=== PATIENT | male | born 1955 | race Caucasian/White ===

== ENCOUNTER 2020-01-24 08:38 | Outpatient (CLI) | payer OTHER, SELFPAY ==
[2020-01-24 08:56] LABS: Basophils Absolute Auto 0.1 K/mm3 (0.0-0.1); Basophils Percent Auto 0.8 % (0.2-1.2); Eosinophils Absolute Auto 0.2 K/mm3 (0-0.3); Eosinophils Percent Auto 2.8 % (0-4.4); Hematocrit 46.5 % (42.0-52.0); Hemoglobin 15.6 g/dL (14.0-18.0); Immature Granulocyte Absolute 0.01 K/mm3 (0.00-0.031); Immature Granulocyte Percent A 0.2 % (0-0.5); Lymphocytes Percent Auto 20.1 % (18.3-44.2); Mean Corpuscular HGB Conc 33.5 g/dl (32-36); Mean Corpuscular Hemoglobin 29.9 pg (26-34); Mean Corpuscular Volume 89.1 fl (80-100); Mean Platelet Volume 10.2 fl (7.4-10.4); Monocytes Absolute Auto 0.6 K/mm3 (0.1-0.6); Monocytes Percent Auto 9.2 % (2.6-8.5); Neutrophils Percent Auto 66.9 % (45.5-73.1); Platelet Count Result 182 k/mm3 (150-375); Red Blood Count 5.22 M/mm3 (4.6-6.20); Red Cell Distribution Width 11.9 % (11.5-14.5)
[2020-01-24 09:08] LABS: Alanine Aminotransferase 36 U/L (4-50); Albumin Level 4.3 g/dL (3.5-5.1); Alkaline Phosphatase 75 U/L (38-126); Aspartate Amino Transferase 40 U/L (17-59); Bilirubin,Total 0.6 mg/dL (0.2-1.3); Blood Urea Nitrogen 14 mg/dL (9-20); Calcium 8.7 mg/dL (8.4-10.2); Carbon Dioxide 30 mmol/L (22-30); Chloride 102 mmol/L (98-107); Cholesterol 193 mg/dL (0-200); Estimated Glomerular Filt Rate > 60; Glucose 108 mg/dL (75-110); HDL Direct 41 mg/dL; Potassium 4.2 mmol/L (3.4-5.0); Sodium 138 mmol/L (137-145); Triglycerides 65 mg/dL (<150)
[2020-01-24 09:12] LABS: Rheumatoid Factor < 8.6 IU/ML (<12)
[2020-01-24 09:18] LABS: Erythrocyte Sedimentation Rate 9 mm/hr (0-20)
[2020-01-24 09:19] LABS: LDL Cholesterol Direct 133 mg/dL
[2020-01-24 10:22] LABS: Vitamin D 25 Hydroxy 41.2 ng/mL
== END 2020-01-24 08:39 | disposition home or self-care (01) ==
PROVIDERS: PCP Family Medicine; Visit Provider Nurse Practitioner
DX: Z00.00 Encounter for general adult medical examination without abnormal findings (principal); M25.40 Effusion, unspecified joint; E55.9 Vitamin D deficiency, unspecified
CPT/HCPCS: 36415; 80053; 80061; 82306; 84443; 85025; 85652; 86038; 86430

== ENCOUNTER 2023-05-24 01:24 | Day surgery (SDC) | payer MEDICARE, OTHER, SELFPAY ==
[2023-05-15 14:08] VITALS: BMI 30.8
--- NOTE | 2023-05-23 15:27 | PM.HPGS ---
History of Present Illness History of Present Illness Consent: Risks, benefits, and alternatives have been discussed and questions answered. Patient agrees to proceed with procedure. Chief complaint: other fecal abnormalities Narrative: Itz Alcala is a 67 year old male referred for colon cancer screening. He recently performed a Cologuard test which was positive. His last colonoscopy 15 years ago was unremarkable. Review of Systems Review of Systems: All systems reviewed & are unremarkable except as noted in HPI and below PMFSH Past Medical History Medical History History of pneumonia Pneumonia (~05/2020) Positive colorectal cancer screening using Cologuard test Seasonal allergies Surgical History Surgical History History of carpal tunnel release of both wrists Family History Family History Mother Diabetes mellitus Father Family history of Alzheimer's disease Social History Social History Social History: Caffeine-daily Smoking status: Former smoker Tobacco type: cigarettes Alcohol intake: current Drinks per week: 1 Alcohol use details: minimal Substance use: never Substance use type: does not use Lack of Transportation: No Lack of Food: Never True Current Housing: I Have Housing Concerned About Future Housing: No Difficulty Paying Gas/Electric Bills: No Difficulty Paying for Meds: No Currently Unemployed: No Education: High School Diploma/GED Difficulty w/ Childcare or Family Care: No Living arrangements: with family Spiritual care concerns: No Meds Home Medications and Allergies Home Medications Medication Instructions Recorded Confirmed Type multivitamin 1 tablet PO DAILY 01/17/20 05/15/23 History betamethasone dipropionate 0.05 % 1 applic topical DAILY PRN Allergy 03/27/23 05/15/23 History topical cream Symptoms loratadine 10 mg tablet 10 mg PO DAILY 03/27/23 05/15/23 History Allergies Allergy/AdvReac Type Severity Reaction Status Date / Time Triple antibiotic ointment AdvReac Mild Other Uncoded 05/24/23 07:06 Exam Resp: Auscultation: clear to auscultation bilaterally Cardio: Rate: regular rate Rhythm: regular rhythm GI: GI Palp: Yes Soft to palpation and No Tenderness to palpation present (GI) Assessment and Plan Assessment and plan (1) Colon cancer screening: Code(s): Z12.11 - Encounter for screening for malignant neoplasm of colon Status: Resolved Assessment and Plan: Colonoscopy with possible biopsy or polypectomy or cautery or injection of substances.
[2023-05-24 07:08] VITALS: BP 118/76; PULSE 61; RESP 18; TEMP 36.3; O2SAT 100
--- NOTE | 2023-05-24 07:10 | P.PNAN_ITS ---
Anes - Initial Pre Proc Eval Procedure: Operation Date: 05/24/23 08:30 Proposed Procedures p Colonoscopy - Juarez Short MD Date/Time: 05/24/23 07:10 Surgeon: Juarez Short MD Pre Op Diagnosis: other fecal abnormalities Patient Data Age: 67 Gender: M Height: 1.78 m Weight: 97 kg Last Vital Signs Temp 36.3 C L 05/24/23 07:08 Pulse 61 05/24/23 07:08 Resp 18 05/24/23 07:08 BP 118/76 05/24/23 07:08 Pulse Ox 100 05/24/23 07:08 O2 Del Method Room Air 05/24/23 07:08 Allergies Allergy/AdvReac Type Severity Reaction Status Date / Time Triple antibiotic ointment AdvReac Mild Other Uncoded 05/24/23 07:06 Home Medications Medication Instructions Recorded Confirmed Type multivitamin 1 tablet PO DAILY 01/17/20 05/15/23 History betamethasone dipropionate 0.05 % 1 applic topical DAILY PRN Allergy 03/27/23 05/15/23 History topical cream Symptoms loratadine 10 mg tablet 10 mg PO DAILY 03/27/23 05/15/23 History Patient hx anesthesia problems: none Family hx anesthesia problems: none Results Review: All pre-operative results and documents have been reviewed as part of the pre- operative evaluation. [facility] Past Medical History Medical History (Updated 04/12/23 @ 14:15 by Aneta Michelle, SUPERVIS[employer] TRAINING [employer]IST) History of pneumonia Pneumonia (~05/2020) Positive colorectal cancer screening using Cologuard test Seasonal allergies Surgical History Surgical History History of carpal tunnel release of both wrists Family History Family History Mother Diabetes mellitus Father Family history of Alzheimer's disease Social History Social History (Updated 03/27/23 @ 07:43 by Any Crews) Social History: Caffeine-daily Smoking status: Former smoker Tobacco type: cigarettes Alcohol intake: current Drinks per week: 1 Alcohol use details: minimal Substance use: never Substance use type: does not use Lack of Transportation: No Lack of Food: Never True Current Housing: I Have Housing Concerned About Future Housing: No Difficulty Paying Gas/Electric Bills: No Difficulty Paying for Meds: No Currently Unemployed: No Education: High School Diploma/GED Difficulty w/ Childcare or Family Care: No Living arrangements: with family Spiritual care concerns: No Anes - Eval Final PreProcedure Day of Procedure 05/24/23 07:10 Patient weight: obese Heart: regular rate and rhythm Lungs: clear to auscultation Airway: Mallampati scale class II Neurological: alert and oriented Last oral intake: >/= 8 hours ASA classification: II Emergent: no Anesthetic plan: proceed Anesthesia type and monitoring: general GIVS and standard monitoring Results Review: All pre-operative results and documents have been reviewed as part of the pre-operative evaluation. Informed Consent: The patient's anesthetic plan and its attendant risks and benefits were discussed with the patient/family/POA. Questions were solicited and answers provided to the satisfaction of the patient/family/POA.
[2023-05-24] MEDS: LACTATED RINGERS 1,000 ML 150 ML IV CONT (07:16)
[2023-05-24 08:22] VITALS: BP 97/61; PULSE 59; RESP 19; O2SAT 97
[2023-05-24 08:32] VITALS: BP 122/66; PULSE 62; RESP 17; O2SAT 98
[2023-05-24 08:42] VITALS: BP 98/68; PULSE 56; RESP 23; O2SAT 97
== END 2023-05-24 08:45 | disposition home or self-care (01) ==
PROVIDERS: PCP Family Medicine; Visit Provider Internal Medicine Gastroenterology
PROC: 0DJD8ZZ Inspection of Lower Intestinal Tract, Via Natural or Artificial Opening Endoscopic (ICD-10-PCS; CPT 45378; principal; 2023-05-24 08:30)
DX: Z12.11 Encounter for screening for malignant neoplasm of colon (principal); D12.5 Benign neoplasm of sigmoid colon; R19.5 Other fecal abnormalities; Z87.891 Personal history of nicotine dependence; E66.9 Obesity, unspecified; Z68.30 Body mass index [BMI] 30.0-30.9, adult
CPT/HCPCS: 45381; 45385; 88305; J2704; J7120